=== PATIENT | male | born 1955 | race Caucasian/White ===

== ENCOUNTER 2022-01-29 10:27 | Emergency (ER) | payer MEDICARE, SELFPAY ==
[2022-01-29] VITALS (7 sets, daily range): BP systolic 136–161; BP diastolic 94–123; PULSE 86–114; RESP 20; TEMP 36.4–36.7; O2SAT 97–100; BMI 23.8
--- NOTE | 2022-01-29 10:47 | PC.NURSE ---
1047 ED MD AT BEDSIDE FOR EVALUATION
--- NOTE | 2022-01-29 10:55 | XR_ITS ---
FINAL REPORT CLINICAL HISTORY: SOA, COUGH FINDINGS: A portable view of the chest is obtained. The heart is mildly enlarged. The mediastinal silhouette is normal. There are bibasilar opacities, left greater than right that could represent atelectasis or pneumonia. There is no pleural effusion or pneumothorax. IMPRESSION: Bibasilar opacities, left greater than right that could represent atelectasis or pneumonia. Reviewed, Interpreted and Dictated by Katie Soto MD Transcribed by Sonia Burgess Authenticated and [facility]
--- NOTE | 2022-01-29 10:58 | ECG_ITS ---
APPROVED REPORT Exam: Resting ECG HR:113 bpm ECG Measurements Heart Rate 113 AXES WY 147 P 56 QRSd 92 QRS -74 QT 313 T 57 QTc 380 Conclusion SINUS TACHYCARDIA POSSIBLE LEFT ATRIAL ENLARGEMENT [-0.1mV P-WAVE IN V1/V2] LEFT AXIS DEVIATION [QRS AXIS < -30] NONSPECIFIC T-WAVE ABNORMALITY ABNORMAL ECG UNCONFIRMED REPORT Electronically signed by : Baldomero Suero MD 01/30/2022 21:09:26
--- NOTE | 2022-01-29 11:03 | HMH.EDSOB ---
ED Disposition Clinical Impression: CHF exacerbation Qualifiers: Heart failure type: unspecified Qualified Code(s): I50.9 - Heart failure, unspecified Disposition: Home, Self-Care Condition on Discharge: Good Instructions: Heart Failure Additional Instructions: Please take 40 mg of Lasix daily for the next 3 days and follow-up with your PCP this week. Prescriptions: Furosemide [Lasix 40mg tab] 40 mg PO DAILY 3 Days #3 tab Transmission Status: Received by Primary [facility] Referrals: Job Montenegro [Primary Care Provider] - - Critical Care Critical Care Time: No Attestation: On 01/29/22, the high probability of a clinically significant, sudden or life threatening deterioration of the following system(s) required my full and direct attention, intervention and personal management. The time I documented below is in addition to time spent performing reported procedures but includes the following listed in this critical care notation. Medical Decision Making - Darius Inquiry Pt receiving controlled substance: No Vital Signs: 01/29/22 10:28 01/29/22 11:00 01/29/22 11:30 Temperature 97.6 F Temperature Source Oral Pulse Rate 114 H 110 H Pulse Rate [Left Radial] 114 H Respiratory Rate 20 Blood Pressure 161/123 H 141/107 H Blood Pressure [Right Arm] 159/119 H Blood Pressure Mean 139 118 Blood Pressure Mean [Right Arm] 132 Blood Pressure Source Blood Pressure Source [Right Arm] Automatic Cuff Blood Pressure Position Blood Pressure Position [Right Arm] Sitting 02 Sat by Pulse Oximetry 100 98 97 Oxygen Delivery Method Room Air 01/29/22 12:00 01/29/22 12:30 01/29/22 13:00 Temperature Temperature Source Pulse Rate 109 H 102 H 102 H Pulse Rate [Left Radial] Respiratory Rate Blood Pressure 146/100 H 136/94 H 145/102 H Blood Pressure [Right Arm] Blood Pressure Mean 116 108 117 Blood Pressure Mean [Right Arm] Blood Pressure Source Blood Pressure Source [Right Arm] Blood Pressure Position Blood Pressure Position [Right Arm] 02 Sat by Pulse Oximetry 99 97 97 Oxygen Delivery Method 01/29/22 13:55 Temperature 98.0 F Temperature Source Oral Pulse Rate 86 Pulse Rate [Left Radial] Respiratory Rate 20 Blood Pressure 142/100 H Blood Pressure [Right Arm] Blood Pressure Mean Blood Pressure Mean [Right Arm] Blood Pressure Source Automatic Cuff Blood Pressure Source [Right Arm] Blood Pressure Position Sitting Blood Pressure Position [Right Arm] 02 Sat by Pulse Oximetry Oxygen Delivery Method Room Air - Lab Data Lab Results 01/29/22 10:40: WBC 9.6, RBC 4.82, Hgb 14.7, Hct 43.0, MCV 89.3, MCH 30.5, MCHC 34.1, RDW 14.2, Plt Count 337, MPV 7.4, Neut % (Auto) 69.5, Lymph % (Auto) 19.8, [place] % (Auto) 7.3, Eos % (Auto) 2.6, Baso % (Auto) 0.7, Neut # (Auto) 6.7, Lymph # (Auto) 1.9, [place] # (Auto) 0.7, Eos # (Auto) 0.3, Baso # (Auto) 0.1 01/29/22 10:40: Sodium 138, Potassium 4.9, Chloride 102, Carbon Dioxide 28, Anion Gap 12.9, BUN 22 H, Creatinine 1.20, Estimated Creat Clear 57, Estimated GFR 60, Est GFR ( Amer) 73, Glucose 140 H, Calcium 9.5, Total Bilirubin 0.9, AST 70 H, ALT 79 H, Alkaline Phosphatase 133 H, Troponin I 0.03, NT-Pro-B Natriuret Pep 8190 H, Total Protein 7.4, Albumin 4.4, Globulin 3.0, Albumin/Globulin Ratio 1.5 Result diagrams: 01/29/22 10:40 01/29/22 10:40 Orders (Tests/Meds): ED MEDICATIONS Discontinued Medications Generic Name Dose Route Start Last Admin Trade Name Devonq PRN Reason Stop Dose Admin Furosemide 20 mg 01/29/22 13:07 01/29/22 13:09 Furosemide 20 Mg/2 Ml Vial IV 01/29/22 13:08 20 mg ONCE ONE Administration Sodium Chloride 10 ml 01/29/22 10:55 Sodium Chloride 0.9% 10ml Flush Syringe IV 02/28/22 10:54 NEEDED PRN Maintain IV Site ORDERS Category Date Time Status Troponin I Q3H Lab 01/29/22 14:00 Ordered Troponin I Q3H Lab 01/29/22 17:00 Ordered ECG
[2022-01-29 11:09] LABS: Basophils # 0.1 K/mm3 (0-0.2); Basophils % 0.7 % (0.1-2.0); Eosinophils # 0.3 K/mm3 (0.0-0.4); Eosinophils % 2.6 % (0.1-12.0); Hemoglobin 14.7 g/dL (14.1-18.0); Lymphocytes # 1.9 K/mm3 (0.7-4.5); Lymphocytes % 19.8 % (10-50); Mean Corpuscular HGB Conc 34.1 g/dL (31.8-35.4); Mean Corpuscular Hemoglobin 30.5 pg (27.0-31.2); Mean Corpuscular Volume 89.3 fl (80-94); Mean Platelet Volume 7.4 fl (7.4-10.4); Monocytes # 0.7 K/mm3 (0.1-1.0); Monocytes % 7.3 % (1.7-9.3); Neutrophils # 6.7 K/mm3 (1.8-7.8); Neutrophils % 69.5 % (37.0-80.0); Platelet Count 337 K/mm3 (142-424); Red Blood Count 4.82 M/mm3 (4.60-6.20); Red Cell Distribution Width 14.2 % (11.5-17.5); White Blood Count 9.6 K/mm3 (4.8-10.8)
[2022-01-29 11:10] LABS: Chloride 102 mmol/L (98-107); Potassium 4.9 mmoL/L (3.5-5.1); Sodium 138 mmol/L (136-145)
--- NOTE | 2022-01-29 11:10 | PC.NURSE ---
XR AT BEDSIDE
[2022-01-29 11:12] LABS: Blood Urea Nitrogen 22 mg/dl (9-20); Creatinine Clearance Estimated 57 mL/min (50-200); Estimated Glomerular Filt Rate 60 ml/min (>60); GFR (African American) 73 ML/MIN (>60)
[2022-01-29 11:13] LABS: Alanine Aminotransferase 79 U/L (12-78); Albumin Level 4.4 g/dl (3.5-5.0); Albumin/Globulin Ratio 1.5 (1.1-1.8); Alkaline Phosphatase 133 U/L (38-126); Aspartate Amino Transferase 70 U/L (17-59); Bilirubin,Total 0.9 mg/dl (0.2-1.3); Calcium 9.5 mg/dl (8.4-10.2); Glucose 140 mg/dl (74-100); Total Protein,Serum 7.4 g/dl (6.3-8.2)
[2022-01-29 11:22] LABS: NT Pro Brain Natriuretic Pep. 8190 pg/mL (0-125)
[2022-01-29 11:26] LABS: Troponin I 0.03 ng/ml (0.00-0.034)
--- NOTE | 2022-01-29 11:41 | PC.NURSE ---
pt given water with MD leo
--- NOTE | 2022-01-29 11:42 | PC.NURSE ---
PT REQUESTING A DRINK, OK'D WITH ED MD. DRINK PROVIDED. NO FURTHER NEEDS AT THIS TIME
[2022-01-29 11:53] LABS: Anion Gap 12.9 mEq/L (5-15); Carbon Dioxide 28 mmol/L (22.0-30.0)
--- NOTE | 2022-01-29 12:27 | PC.NURSE ---
ROUNDED ON PT, REPOSITIONED IN BED. AT BEDSIDE AND PROVIDED WATER. NO FURTHER NEEDS
--- NOTE | 2022-01-29 13:02 | PC.NURSE ---
ED MD AT BEDSIDE UPDATING PT AND FAMILY
== END 2022-01-29 13:56 | disposition home or self-care (01) ==
PROVIDERS: Emergency Provider Student in an Organized Health Care Education/Training Program; PCP Family Medicine
DX: I50.9 Heart failure, unspecified (principal); Z88.0 Allergy status to penicillin; Z79.899 Other long term (current) drug therapy
CPT/HCPCS: 71045; 80053; 83880; 84484; 85025; 93005; 96374; 99284